=== PATIENT | female | born 1990 | race Caucasian/White ===

== ENCOUNTER 2025-01-05 10:24 | Emergency (ER) | payer SELFPAY ==
[2025-01-05 10:37] VITALS: BP 122/72; PULSE 66; TEMP 36.9; O2SAT 99; BMI 39.5
[2025-01-05] MEDS: ONDANSETRON PF 4 MG/2 ML VIAL IV (10:56)
[2025-01-05] MEDS: 0.9 % SODIUM CHLORIDE 1,000 ML 1000 ML IV (10:56)
[2025-01-05] MEDS: KETOROLAC TROMETHAMINE 30 MG/ML VIAL IVP (10:56)
[2025-01-05 11:01] LABS: Basophils Absolute Auto 0.1 10^3/uL (0.0-0.1); Basophils Percent Auto 0.3 % (0.2-2.0); Eosinophils Absolute Auto 0.2 10^3/uL (0.0-0.7); Eosinophils Percent Auto 1.1 % (0.9-7.0); Hematocrit 42.1 % (36.0-48.0); Hemoglobin 14.3 g/dL (12.0-16.0); Immature Granulocytes Abs Auto 0.08 10^3/uL (0.00-0.03); Immature Granulocytes Pct Auto 0.5 % (0.0-0.5); Lymphocytes Absolute Auto 2.6 10^3/uL (1.2-3.8); Lymphocytes Percent Auto 16.5 % (20.5-60.0); Mean Corpuscular Hemoglobin 29.4 pg (26.7-34.0); Mean Corpuscular Volume 86.4 fL (81.0-99.0); Mean Platelet Volume 10.5 fL (9.5-13.5); Monocytes Absolute Auto 0.9 10^3/uL (0.3-0.8); Monocytes Percent Auto 5.8 % (1.7-12.0); Neutrophils Percent Auto 75.8 % (43.0-75.0); Platelet Count 347 10^3/uL (150-450); Red Blood Count 4.87 10^6/uL (4.20-5.40); Red Cell Distribution Width 13.5 % (11.0-15.0); White Blood Count 15.9 10^3/uL (4.0-11.0)
--- NOTE | 2025-01-05 11:12 | ED.GENADUL1 ---
HPI HPI - General Adult General Chief complaint: Back Pain/Injury Stated complaint: FLANK PAIN Time Seen by Provider: 01/05/25 10:33 Source: patient Mode of arrival: Wheelchair History of Present Illness HPI narrative: Patient presents to ED complaining of right flank pain. She said it started dull this morning and then suddenly got a lot worse. She said the pain is in the flank but radiates around the front. It has been causing nausea vomiting. She said her mom has a history of kidney stones and this feels like possibly what this is. She does have a history of ideation she does still have her appendix and gallbladder. She has not been spiking fevers. She said she does not really drink a lot of water and she knows she does not really take care of herself that well. She said she tried to start drinking water and cranberry juice but the pain nausea and vomiting were too much so she came in for further value patient. IV was started and Toradol and Zofran were ordered. Related Data Previous Rx's ?Medication ?Instructions ?Recorded ciprofloxacin HCl 500 mg tablet 500 mg PO BID 7 days #14 tabs 01/05/25 (Cipro) ondansetron 4 mg disintegrating 4 mg PO DAILY PRN nausea and 01/05/25 tablet vomiting #15 tabs oxycodone-acetaminophen 5 mg-325 1 tab PO Q6H PRN pain #14 tabs 01/05/25 mg tablet (Percocet) tamsulosin 0.4 mg capsule (Flomax) 0.4 mg PO DAILY #14 caps 01/05/25 Allergies Allergy/AdvReac Type Severity Reaction Status Date / Time morphine AdvReac Rash Verified 01/05/25 10:37 Opioid HPI Opioid Management Most Recent Opioid Data: No Data to Display Review of Systems ROS Status of ROS 10 or more systems reviewed and unremarkable except as noted in history and below PFSH PFSH Social History Little interest or pleasure in doing things: not at all Feeling down, depressed, or hopeless: not at all Exam Narrative Exam Narrative: Time Seen: [] Vital Signs: [Per nurse's notes.] General: [Alert] Skin: [Warm, dry, no rash.] Head: [Normocephalic, atraumatic.] Neck: [Supple, trachea midline.] Eye: [Pupils are equal, round and reactive to light, extraocular movements are intact, normal conjunctiva.] Ears, nose, mouth and throat: oral mucosa moist. Cardiovascular: [Regular rate and rhythm, no murmur.] Respiratory: [Lungs are clear to auscultation, respirations are non-labored, breath sounds are equal.] Chest wall: [No tenderness, no deformity.] Gastrointestinal: [Soft, nontender, non distended, normal bowel sounds.] Right flank pain radiating to the abdomen not reproducible on exam patient states it is more inside pain but it does not hurt to push on it. MSK: 5 out of 5 muscle strength x 4 extremities no calf pain or edema Lymphatics: [No lymphadenopathy.] Psychiatric: [Cooperative, appropriate mood & affect.] Neurological: [Alert and oriented to person, place, time, and situation, no focal neurological deficit observed.] Constitutional Vital Signs, click to edit/add: Last Vital Signs Temp 98.4 F 01/05/25 10:37 Pulse 66 01/05/25 10:37 Resp 18 01/05/25 10:37 BP 122/72 01/05/25 10:37 Pulse Ox 99 01/05/25 10:37 O2 Del Method Room Air 01/05/25 10:37 Course Vital Signs Vital signs: Vital Signs Temperature 98.4 F 01/05/25 10:37 Pulse Rate 66 01/05/25 10:37 Respiratory Rate 18 01/05/25 10:37 Blood Pressure 122/72 01/05/25 10:37 Pulse Oximetry 99 01/05/25 10:37 Oxygen Delivery Method Room Air 01/05/25 10:37 Temperature 98.4 F 01/05/25 10:37 Pulse Rate 66 01/05/25 10:37 Respiratory Rate 18 01/05/25 10:37 Blood Pressure 122/72 01/05/25 10:37 Pulse Oximetry 99 01/05/25 10:37 Oxygen Delivery Method Room Air 01/05/25 10:37 Medical Decision Making MDM Narrative Medical decision making narrative: Patient CT scan shows an obstructing stone in the right UPJ. Stone is 3 mm in size. Patient's pain and nausea are controlled after IV medications. Patient would prefer to go home and try to pass the kidney stone at home. Instructed to hydrate. Call Urology: Office today to schedule follow-up appointment Patient was given Cipro, Flomax, Percocet and Zofran for pain and nausea control as well as Treatment: For possible infection Patient is to return to ED if worsening symptoms, fever chills vomiting or worsening pain. Otherwise follow-up with urology outpatient. Patient comfortable with care plan for home Differential Diagnosis Differential Diagnosis: The stone acute appendicitis back strain Lab Data Lab results reviewed: Yes I reviewed the patient's lab results Labs: Lab Results 01/05/25 01/05/25 Range/Units 10:40 10:45 WBC 15.9 H (4.0-11.0) 10^3/uL RBC 4.87 (4.20-5.40) 10^6/uL Hgb 14.3 (12.0-16.0) g/dL Hct 42.1 (36.0-48.0) % MCV 86.4 (81.0-99.0) fL MCH 29.4 (26.7-34.0) pg MCHC 34.0 (29.9-35.2) g/dL RDW 13.5 (11.0-15.0) % Plt Count 347 (150-450) 10^3/uL MPV 10.5 (9.5-13.5) fL Neut % (Auto) 75.8 H (43.0-75.0) % Lymph % (Auto) 16.5 L (20.5-60.0) % [place] % (Auto) 5.8 (1.7-12.0) % Eos % (Auto) 1.1 (0.9-7.0) % Baso % (Auto) 0.3 (0.2-2.0) % Neut # (Auto) 12.0 H (1.4-6.5) 10^3/uL Lymph # (Auto) 2.6 (1.2-3.8) 10^3/uL [place] # (Auto) 0.9 H (0.3-0.8) 10^3/uL Eos # (Auto) 0.2 (0.0-0.7) 10^3/uL Baso # (Auto) 0.1 (0.0-0.1) 10^3/uL Abs Immat Gran (auto) 0.08 H (0.00-0.03) 10^3/uL Imm/Tot Granulo (auto) 0.5 (0.0-0.5) % Sodium 138 (136-145) mmol/L Potassium 3.5 (3.5-5.1) mmol/L Chloride 105 (98-107) mmol/L Carbon Dioxide 21.5 (21.0-32.0) mmol/L Anion Gap 15.0 BUN 11.0 (7.0-18.0) mg/dL Creatinine 0.80 (0.55-1.02) mg/dL Est GFR ( Amer) >60 (>=60 mL/min/1.73m^2) Est GFR (Non-Af Amer) >60 (>=60 mL/min/1.73m^2) BUN/Creatinine Ratio 13.8 Glucose 105 (74-106) mg/dL Calcium 9.5 (8.5-10.1) mg/dL Total Bilirubin 0.3 (0.2-1.0) mg/dL AST 11 L (15-37) U/L ALT 12 L (14-59) U/L Alkaline Phosphatase 76 (46-116) U/L Total Protein 7.3 (6.4-8.2) g/dL Albumin 3.5 (3.4-5.0) g/dL Globulin 3.8 g/dL Albumin/Globulin Ratio 0.9 Urine Color Yellow (YELLOW) Urine Clarity Clear (CLEAR) Urine pH 8.0 (5.0-9.0) Ur Specific [place] 1.020 (1.005-1.025) Urine Protein 100 A (NEG/TRACE) mg/dL Urine Glucose (UA) Negative (NEGATIVE) mg/dL Urine Ketones Negative (NEGATIVE) mg/dL Urine Occult Blood Large A (NEGATIVE) Urine Nitrite Negative (NEGATIVE) Urine Bilirubin Negative (NEGATIVE) Urine Urobilinogen 1.0 (0.2-1.0) EU/dL Ur Leukocyte Esterase Small A (NEGATIVE) Urine RBC 10-20 A (0-2) #/HPF Urine WBC 10-20 A (NONE SEEN) #/HPF Ur Squamous Epith Cells Few A (NONE/RARE) #/LPF Ur Transition Epith Cell Rare A (NONE SEEN) #/LPF Urine Crystals None seen (None Seen) #/HPF Amorphous Sediment Rare Urine Bacteria Moderate A (NONE SEEN) #/HPF Urine Casts None seen (NONE SEEN) #/LPF Urine Mucus Trace A (NONE SEEN) Ur Culture Indicated? Yes-[facility] – [place], [place] Imaging Data CT scan - abdomen: Attestation: I have reviewed the pertinent imaging results. Discharge Plan Discharge Chief Complaint: Back Pain/Injury Clinical Impression: Kidney stone on right side Patient Disposition: Home, Self-Care Time of Disposition Decision: 12:41 Condition: Good Mode of Transportation: Private Vehicle Prescriptions / Home Meds: New ciprofloxacin HCl [Cipro] 500 mg tablet 500 mg PO BID 7 Days Qty: 14 0RF oxycodone-acetaminophen [Percocet] 5-325 mg tablet 1 tab PO Q6H PRN (Reason: pain) Qty: 14 0RF tamsulosin [Flomax] 0.4 mg capsule 0.4 mg PO DAILY Qty: 14 0RF ondansetron 4 mg tablet,disintegrating 4 mg PO DAILY PRN (Reason: nausea and vomiting) Qty: 15 0RF Print Language: Chinese Instructions: Kidney Stones (ED) Referrals: Physician,Non-Staff, [Primary Care Provider] - 1 week Scar Son MD [Physician] - 1 week Discharge Date/Time: 01/05/25 12:57
[2025-01-05 11:16] LABS: Alanine Aminotransferase 12 U/L (14-59); Albumin Globulin Ratio 0.9; Albumin Level 3.5 g/dL (3.4-5.0); Alkaline Phosphatase 76 U/L (46-116); Aspartate Amino Transferase 11 U/L (15-37); BUN Creatinine Ratio 13.8; Bilirubin Total 0.3 mg/dL (0.2-1.0); Calcium 9.5 mg/dL (8.5-10.1); Carbon Dioxide 21.5 mmol/L (21.0-32.0); Chloride 105 mmol/L (98-107); Estimated GFR (African America >60 (>=60 mL/min/1.73m^2); Estimated GFR (Non-African Ame >60 (>=60 mL/min/1.73m^2); Globulin 3.8 g/dL; Glucose 105 mg/dL (74-106); Potassium 3.5 mmol/L (3.5-5.1); Sodium 138 mmol/L (136-145); Total Protein 7.3 g/dL (6.4-8.2)
[2025-01-05 12:20] LABS: Bilirubin Urine NEGATIVE (NEGATIVE); Blood Urine LARGE (NEGATIVE); Clarity Urine CLEAR (CLEAR); Color Urine YELLOW (YELLOW); Glucose Urine UA NEGATIVE (NEGATIVE); Ketones Urine NEGATIVE (NEGATIVE); Leukocyte Esterase Urine SMALL (NEGATIVE); Nitrite Urine NEGATIVE (NEGATIVE); Protein Urine 100 mg/dL (NEG/TRACE)
[2025-01-05 12:31] LABS: Bacteria Urine MODERATE #/HPF (NONE SEEN); Cast Seen? NONE SEEN #/LPF (NONE SEEN); Crystals Seen? None Seen #/HPF (None Seen); Mucus Urine TRACE (NONE SEEN); Squamous Epithelial Cell Urine FEW #/LPF (NONE/RARE); Transitional Epi Cells Urine RARE #/LPF (NONE SEEN); Urine Culture Indicated YES-FRMC
[2025-01-05 12:41] LABS: Amorphous Sediment Urine RARE
== END 2025-01-05 12:57 | disposition home or self-care (01) ==
PROVIDERS: Emergency Provider Emergency Medicine
DX: N13.2 Hydronephrosis with renal and ureteral calculous obstruction (principal)
CPT/HCPCS: 36415; 74176; 80053; 81001; 85025; 87086; 87150; 87186; 96361; 96374; 96375; 99284; J1885; J2405

== ENCOUNTER 2025-03-08 13:30 | Emergency (ER) | payer SELFPAY ==
[2025-03-08 13:35] VITALS: BP 129/89; PULSE 78; TEMP 37.1; O2SAT 98; BMI 38.6
[2025-03-08 13:54] LABS: Basophils Absolute Auto 0.1 10^3/uL (0.0-0.1); Basophils Percent Auto 0.4 % (0.2-2.0); Eosinophils Absolute Auto 0.2 10^3/uL (0.0-0.7); Eosinophils Percent Auto 1.7 % (0.9-7.0); Hematocrit 47.2 % (36.0-48.0); Hemoglobin 15.5 g/dL (12.0-16.0); Immature Granulocytes Pct Auto 0.7 % (0.0-0.5); Lymphocytes Absolute Auto 2.7 10^3/uL (1.2-3.8); Lymphocytes Percent Auto 20.2 % (20.5-60.0); Mean Corpuscular HGB Conc 32.8 g/dL (29.9-35.2); Mean Corpuscular Hemoglobin 29.2 pg (26.7-34.0); Mean Corpuscular Volume 88.9 fL (81.0-99.0); Mean Platelet Volume 10.1 fL (9.5-13.5); Monocytes Absolute Auto 1.1 10^3/uL (0.3-0.8); Monocytes Percent Auto 7.9 % (1.7-12.0); Neutrophils Absolute Auto 9.2 10^3/uL (1.4-6.5); Neutrophils Percent Auto 69.1 % (43.0-75.0); Platelet Count 339 10^3/uL (150-450); Red Blood Count 5.31 10^6/uL (4.20-5.40); White Blood Count 13.4 10^3/uL (4.0-11.0)
[2025-03-08 13:55] LABS: Bilirubin Urine NEGATIVE (NEGATIVE); Blood Urine NEGATIVE (NEGATIVE); Clarity Urine CLEAR (CLEAR); Color Urine LT. YELLOW (YELLOW); Glucose Urine UA NEGATIVE (NEGATIVE); Ketones Urine NEGATIVE (NEGATIVE); Protein Urine NEGATIVE (NEG/TRACE); Specific Gravity Urine 1.015 (1.005-1.025); pH Urine 7.5 (5.0-9.0)
[2025-03-08 13:56] LABS: Leukocyte Esterase Urine NEGATIVE (NEGATIVE); Nitrite Urine NEGATIVE (NEGATIVE); Urine Microscopic Indicated NO; Urobilinogen Urine 0.2 EU/dL (0.2-1.0)
[2025-03-08] MEDS: KETOROLAC TROMETHAMINE 30 MG/ML VIAL 15 MG IVP (13:56)
[2025-03-08 14:05] VITALS: O2SAT 100
[2025-03-08 14:10] LABS: HCG Qualitative NEGATIVE (NEGATIVE); Internal Control Within Normal Limits
[2025-03-08 14:12] LABS: Alanine Aminotransferase 31 U/L (14-59); Albumin Globulin Ratio 0.9; Albumin Level 3.4 g/dL (3.4-5.0); Alkaline Phosphatase 80 U/L (46-116); Anion Gap 12.4; Aspartate Amino Transferase 22 U/L (15-37); BUN Creatinine Ratio 9.4; Bilirubin Total 0.4 mg/dL (0.2-1.0); Calcium 9.2 mg/dL (8.5-10.1); Carbon Dioxide 27.8 mmol/L (21.0-32.0); Chloride 103 mmol/L (98-107); Estimated GFR (African America >60 (>=60 mL/min/1.73m^2); Estimated GFR (Non-African Ame >60 (>=60 mL/min/1.73m^2); Globulin 3.9 g/dL; Glucose 79 mg/dL (74-106); Potassium 4.2 mmol/L (3.5-5.1); Sodium 139 mmol/L (136-145); Total Protein 7.3 g/dL (6.4-8.2)
--- NOTE | 2025-03-08 15:18 | ED_ITS ---
HPI - Female Genitourinary General Chief complaint: Urogenital-Female Stated complaint: FLANK PAIN, UTI SYMPTOMS Time Seen by Provider: 03/08/25 13:43 Source: patient Mode of arrival: walk-in Limitations: no limitations History of Present Illness HPI Narrative: The patient is coming to the ER with 5 days history of lower back pain, she has have a history of kidney stone from December of this year and although she did feel better and this pain started only 5 days ago she is worried that this could be another kidney stone episode, the patient had her menstruation almost 6 weeks ago, she denies any nausea or vomiting and the pain is consistent for the last 5 days and in both sides of the lower back Related Data Previous Rx's ?Medication ?Instructions ?Recorded diclofenac sodium 75 mg 75 mg PO Q12H PRN pain #20 t abs 03/08/25 tablet,delayed release Allergies Allergy/AdvReac Type Severity Reaction Status Date / Time morphine AdvReac Rash Verified 01/05/25 10:37 Review of Systems ROS Status of ROS 10 or more systems reviewed and unremark able except as noted in history and below PFSH PFSH Social History Little interest or pleasure in doing things: not at all Feeling down, depressed, or hopeless: not at all Exam Narrative Exam Narrative: Nurses notes and vital signs reviewed and patient is not hypoxic. General: Well-appearing and in no apparent distress. Skin: Warm, dry, no pallor noted. No rash. Head: Normocephalic, atraumatic. Neck: Supple, non-tender. Eye: Pupils are equal, round and EOMI. No scleral icterus. Ears, Nose, Mouth, and Throat: TM are clear, no nasal mucosal hypertrophy. Oral mucosa is moist, no posterior oropharynx erythema, uvula is mid-line Cardiovascular: Regular Rate and Rhythm without murmur, gallop or rub. Respiratory: No accessory muscle use or respiratory distress. Lungs are clear to auscultation, no wheezing, rales or rhonchi Chest Wall: no tenderness Back: The patient have paraspinal muscle tenderness at the upper lumbar level, no CVA tenderness Musculoskeletal: normal ROM, no calf or popliteal tenderness, no lower extremity edema/swelling GI: Abdomen is soft, non-distended. Normal bowel sounds. No masses appreciated. No tenderness to palpation. No rebound, guarding, or rigidity noted. Neurological: A&O x4. No cranial nerve dysfunction observed. No truncal ataxia. Moves all extremities. Sensation intact. Psychiatric: Cooperative and interactive. Normal mood and affect. Constitutional Vital Signs, click to edit/add: Last Vital Signs Temp 98.8 F 03/08/25 13:35 Pulse 78 03/08/25 13:35 Resp 18 03/08/25 13:35 BP 129/89 03/08/25 13:35 Pulse Ox 100 03/08/25 14:05 O2 Del Method Room Air 03/08/25 14:05 Course Vital Signs Vital signs: Vital Signs Temperature 98.8 F 03/08/25 13:35 Pulse Rate 78 03/08/25 13:35 Respiratory Rate 18 03/08/25 13:35 Blood Pressure 129/89 03/08/25 13:35 Pulse Oximetry 98 03/08/25 13:35 Oxygen Delivery Method Room Air 03/08/25 13:35 Temperature 98.8 F 03/08/25 13:35 Pulse Rate 78 03/08/25 13:35 Respiratory Rate 18 03/08/25 13:35 Blood Pressure 129/89 03/08/25 13:35 Pulse Oximetry 100 03/08/25 14:05 Oxygen Delivery Method Room Air 03/08/25 14:05 MDM - Female Genitourinary MDM Narrative Medical decision making narrative: The patient presentation with a history of kidney stone with hydro likely to be a stone but she does have pain both sides of the back Although she endorsed frequency the urinalysis showed no UTI CBC and chemistry showed no acute pathology except for mild elevation of the white blood cells The patient urine will be sent for culture but her presentation right now it could be secondary to lower back pain, mostly muscular in origin Patient feeling better after she was treated with Toradol discharged home after her CAT scan showed no acute pathology The patient instructed about monitoring her symptoms The patient is to follow up with primary care physician in next 2-3 days or to return to the emergency department should any of the signs or symptoms worsen or new symptoms develop. The patient agrees with the following Diagnosis and Treatment plan and the patient will be discharged home. Lab Data Labs: Lab Results 03/08/25 03/08/25 Range/Units 13:42 13:45 WBC 13.4 H (4.0-11.0) 10^3/uL RBC 5.31 (4.20-5.40) 10^6/uL Hgb 15.5 (12.0-16.0) g/dL Hct 47.2 (36.0-48.0) % MCV 88.9 (81.0-99.0) fL MCH 29.2 (26.7-34.0) pg MCHC 32.8 (29.9-35.2) g/dL RDW 14.0 (11.0-15.0) % Plt Count 339 (150-450) 10^3/uL MPV 10.1 (9.5-13.5) fL Neut % (Auto) 69.1 (43.0-75.0) % Lymph % (Auto) 20.2 L (20.5-60.0) % [place] % (Auto) 7.9 (1.7-12.0) % Eos % (Auto) 1.7 (0.9-7.0) % Baso % (Auto) 0.4 (0.2-2.0) % Neut # (Auto) 9.2 H (1.4-6.5) 10^3/uL Lymph # (Auto) 2.7 (1.2-3.8) 10^3/uL [place] # (Auto) 1.1 H (0.3-0.8) 10^3/uL Eos # (Auto) 0.2 (0.0-0.7) 10^3/uL Baso # (Auto) 0.1 (0.0-0.1) 10^3/uL Abs Immat Gran (auto) 0.10 H (0.00-0.03) 10^3/uL Imm/Tot Granulo (auto) 0.7 H (0.0-0.5) % Sodium 139 (136-145) mmol/L Potassium 4.2 (3.5-5.1) mmol/L Chloride 103 (98-107) mmol/L Carbon Dioxide 27.8 (21.0-32.0) mmol/L Anion Gap 12.4 BUN 8.0 (7.0-18.0) mg/dL Creatinine 0.85 (0.55-1.02) mg/dL Est GFR ( Amer) >60 (>=60 mL/min/1.73m^2) Est GFR (Non-Af Amer) >60 (>=60 mL/min/1.73m^2) BUN/Creatinine Ratio 9.4 Glucose 79 (74-106) mg/dL Calcium 9.2 (8.5-10.1) mg/dL Total Bilirubin 0.4 (0.2-1.0) mg/dL AST 22 (15-37) U/L ALT 31 (14-59) U/L Alkaline Phosphatase 80 (46-116) U/L Total Protein 7.3 (6.4-8.2) g/dL Albumin 3.4 (3.4-5.0) g/dL Globulin 3.9 g/dL Albumin/Globulin Ratio 0.9 Serum HCG, Qual Negative (NEGATIVE) Urine Color Lt. yellow (YELLOW) Urine Clarity Clear (CLEAR) Urine pH 7.5 (5.0-9.0) Ur Specific [place] 1.015 (1.005-1.025) Urine Protein Negative (NEG/TRACE) mg/dL Urine Glucose (UA) Negative (NEGATIVE) mg/dL Urine Ketones Negative (NEGATIVE) mg/dL Urine Occult Blood Negative (NEGATIVE) Urine Nitrite Negative (NEGATIVE) Urine Bilirubin Negative (NEGATIVE) Urine Urobilinogen 0.2 (0.2-1.0) EU/dL Ur Leukocyte Esterase Negative (NEGATIVE) Discharge Plan Discharge Chief Complaint: Urogenital-Female Clinical Impression: Back pain Patient Disposition: Home, Self-Care Time of Disposition Decision: 15:21 Condition: Good Prescriptions / Home Meds: New diclofenac sodium 75 mg tablet,delayed release (DR/EC) 75 mg PO Q12H PRN (Reason: pain) Qty: 20 0RF Print Language: Upper Sorbian Instructions: Back Pain (ED) Referrals: Physician,Non-Staff, MD [Primary Care Provider] - 1 week
[2025-03-08 15:40] VITALS: BP 132/78; PULSE 75; O2SAT 100
== END 2025-03-08 15:41 | disposition home or self-care (01) ==
PROVIDERS: Emergency Provider Emergency Medicine
DX: M54.50 Low back pain, unspecified (principal); Z87.442 Personal history of urinary calculi
CPT/HCPCS: 36415; 74176; 80053; 81003; 84703; 85025; 96374; 99285; J1885

== ENCOUNTER 2025-07-17 15:18 | Emergency (ER) | payer MEDICAID, SELFPAY ==
[2025-07-17 15:28] VITALS: BP 126/94; PULSE 70; TEMP 37.1; O2SAT 97; BMI 38.6
--- OUTSIDE RECORDS SUMMARY | 2025-07-17 15:30 | XMS_ITS | CCD ---
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 By: Rodolfo Patel on 07-15-2022 Epithelial cells.squamous LM Ql (Urine sed) Innumerable [HPF] 0-2 [facility] Troponin I.cardiac [Mass/vol ume] in Serum or Plasma by High sensitivity methodOrdered By: Rodolfo Patel on 07-15-2022 Troponin I.cardiac High sensitivity method [Mass/Vol] 3 pg/mL 0-15 [facility] Urine bacteria detection by automated methodOrdered By: Rodolfo Patel on 07-15-2022 Bacteria Auto Ql (U) 4+ None Seen [facility] Urine clarity by refractomet ry automatedOrdered By: Rodolfo Patel on 07-15-2022 Clarity Refractometry automated (U) Turbid Clear [facility] Urine glucose measurement by automated test strip (mass/volume)Ordered By: Rodolfo Patel on 07-15-2022 Glucose Auto test strip (U) [Mass/Vol] Normal mg/dL Normal [facility] Urine hemoglobin detection b y automated test stripOrdered By: Rodolfo Patel on 07-15-2022 Hemoglobin Auto test strip Ql (U) Negative Negative [facility] Urine leukocyte esterase det ection by automated test stripOrdered By: Rodolfo Patel on 07-15-2022 Leukocyte esterase Auto test strip Ql (U) 2+ Negative [facility] Urobilinogen Auto test strip (U) [Mass/Vol]Ordered By: Rodolfo Patel on 07-15-2022 Urobilinogen (U) [Mass/Vol] Normal mg/dL Normal [facility] pH Auto test strip (U)Ordere d By: Rodolfo Patel on 07-15-2022 pH (U) 6.5 [pH] 5.0-9.0 [facility] CBC AUTO DIFFon 10-29-2021 BASO # 0.1 103/ul Normal 0.0-0.1 [facility] Comment on above: Performed By: #### C BC #### [facility] [address] [address] [address] Ori Ellis Basophils/100 WBC (Bld) 0.7 % Normal 0.2-2.0 [facility] Comment on above: Performed By: #### C BC #### [facility] [address] [address] [address] Ori Ellis EO # 0.6 103/ul Normal 0.0-0.7 [facility] Comment on above: Performed By: #### C BC #### [facility] [address] [address] [address] Ori Ellis Eosinophils/100 WBC (Bld) 4.4 % Normal 0.9-7.0 [facility] Comment on above: Performed By: #### C BC #### [facility] [address] [place] [address] Dr. Ori Ellis Erythrocyte distribution width (RBC) [Ratio] 13.8 % Normal 11.0-15.0 [facility] Comment on above: Performed By: #### C BC #### [facility] [address] [place] [address] Dr. Ori Ellis Hematocrit (Bld) [Volume fraction] 43.0 % Normal 36.0-48.0 [facility] Comment on above: Performed By: #### C BC #### [facility] [address] [place] [address] Dr. Ori Ellis Hemoglobin (Bld) [Mass/Vol] 13.7 g/dL Normal 12.0-16.0 [facility] Comment on above: Performed By: #### C BC #### [facility] [address] [place] [address] Dr. Ori Ellis IG # 0.08 10e3/ul Critically high 0.00-0.03 [facility] Comment on above: Performed By: #### C BC #### [facility] [address] [place] [address] Dr. Ori Ellis IG % 0.6 % Critically high 0.0-0.5 [facility] Comment on above: Performed By: #### C BC #### [facility] [address] [place] [address] Dr. Ori Ellis LYMPH # 2.5 103/ul Normal 1.2-3.8 [facility] Comment on above: Performed By: #### C BC #### [facility] [address] [place] [address] Dr. Ori Ellis Lymphocytes/100 WBC (Bld) 18.3 % Critically low 20.5-60.0 [facility] Comment on above: Performed By: #### C BC #### [facility] [address] [place] [address] Dr. Ori Ellis MANUAL DIFF REQ NO Normal [facility] Comment on above: Performed By: #### C BC #### [facility] [address] [place] [address] Dr. Ori Ellis MCH (RBC) [Entitic mass] 28.5 pg Normal 26.7-34.0 [facility] Comment on above: Performed By: #### C BC #### [facility] [address] [place] [address] Dr. Ori Ellis MCHC (RBC) [Mass/Vol] 31.9 g/dL Normal 29.9-35.2 [facility] Comment on above: Performed By: #### C BC #### [facility] [address] [place] [address] Dr. Ori Ellis MCV (RBC) [Entitic vol] 89.4 fL Normal 81.0-99.0 [facility] Comment on above: Performed By: #### C BC #### [facility] [address] [place] [address] Dr. Ori Ellis MONO # 0.9 103/ul Critically high 0.3-0.8 [facility] Comment on above: Performed By: #### C BC #### [facility] [address] [place] [address] Dr. Ori Ellis Monocytes/100 WBC (Bld) 6.9 % Normal 1.7-12.0 [facility] Comment on above: Performed By: #### C BC #### [facility] [address] [place] [address] Dr. Ori Ellis NEUT # 9.4 103/ul Critically high 1.4-6.5 [facility] Comment on above: Performed By: #### C BC #### [facility] [address] [place] [address] Dr. Ori Ellis Neutrophils/100 WBC (Bld) 69.1 % Normal 43.0-75.0 [facility] Comment on above: Performed By: #### C BC #### [facility] [address] [place] [address] Dr. Ori Ellis Platelet mean volume (Bld) [Entitic vol] 10.0 fL Normal 9.5-13.5 [facility] Comment on above: Performed By: #### C BC #### [facility] [address] [place] [address] Dr. Ori Ellis PLT 321 103/ul Normal 150-450 [facility] Comment on above: Performed By: #### C BC #### [facility] [address] [place] [address] Dr. Ori Ellis RBC 4.81 106/ul Normal 4.20-5.40 [facility] Comment on above: Performed By: #### C BC #### [facility] [address] [place] [address] Dr. Ori Ellis WBC 13.5 103/ul Critically high 4.0-11.0 [facility] Comment on above: Performed By: #### C BC #### [facility] [address] [place] [address] Dr. Ori Ellis PREG QUANT HCGon 10-29-2021 HCG QUANT 1 mIU/mL Normal [facility] Comment on above: Performed By: #### P REGQNT #### [facility] [address] [place] [address] Dr. Ori Ellis HCG RANGE SEE BELOW Normal [facility] Comment on above: Result Comment: 5-50 0-1 WEEK 40-300 1-2 WEEKS 100-1,000 2-3 WEEKS 500-6,000 3-4 WEEKS 5,000-200,000 1-2 MONTHS 10,000-100,000 2-3 MONTHS 3,000-50,000 2ND TRIMESTER 1,000-50,000 3RD TRIMESTER Performed By: #### P REGQNT #### [facility] [address] [place] [address] [id number] [address] Ori Ellis Covid-19 PCR ([facility])on 10-10 SARS-CoV-2 (COVID-19) RNA NADINE+probe Ql (Unsp spec) Not detected Normal NOT DETECTED [facility] Comment on above: Result Comment: This test is not yet approved or cleared by the [place] FDA. When there are no FDA-approved or cleared tests available, and other criteria are met, FDA can make tests available under an emergency access mechanism called an Emergency Use Authorization (EUA). The EUA for this test is supported by the Junior Brand Manager of Health and Human Service's (HHS's) declaration that circumstances exist to justify the emergency use of in vitro diagnostics for the detection and/or diagnosis of the virus that causes COVID-19. This EUA will remain in effect (meaning this test can be used) for the duration of the COVID-19 declaration justifying emergency of IVDs, unless it is terminated or revoked by FDA (after which the test may no longer be used). When diagnostic testing is negative, the possibility of a false negative should be considered in the context of a patient's recent exposures and the presence of clinical signs and symptoms consistent with SARS-CoV-2. Performed By: #### C [facility] #### [facility] [address] [place], [place] [id number] Dr. Ori Ellis US PELVIS AND TRANSVAGon US PELVIS AND TRANSVAG EXAMINATION: US PELVIS AND TRANSVAG HISTORY: Pelvic and perineal pain COMPARISON: No relevant comparison available. FINDINGS: Transabdominal and transvaginal images The uterus is normal in size, contour and myometrial echotexture measuring 8.6 x 6.6 x 5.0 cm. No focal myometrial mass. Anteverted. The endometrium measures 11.8 mm. The right ovary is normal in size measuring 3.5 x 2.1 x 2.4 cm. Normal resistive index of 0.6. Area of anechoic echogenicity measuring 1.6 x 1.5 x 1.0 cm, simple cyst The left ovary measures 1.9 x 1.6 x 1.7 cm. Normal resistive index of 0.6. No free fluid IMPRESSION: Endometrium measures 11.8 mm. Normal for the late proliferative or secretory phase of ovulation. Clinically correlate Electronically authenticated by: NICOLE SOFIA Date: 2021-10-17 12:19 Normal [facility] PAP ACOG PANEL 2: 30 to 65on 10-09-2021 . . Normal [facility] Comment on above: Result Comment: Perf ormed at: WB Performed By: #### [id number] #### [facility] [address] [place] [address] Dr. Ori Ellis Age Gdln ACOG Testing 30-65 Normal [facility] Comment on above: Performed By: #### [id number] #### [facility] [address] [place] [address] Dr. Ori Ellis DIAGNOSIS: Comment Normal [facility] Comment on above: Result Comment: NEGA TIVE FOR INTRAEPITHELIAL LESION OR MALIGNANCY. PREDOMINANCE OF COCCOBACILLI CONSISTENT WITH SHIFT IN VAGINAL DONNELL IS PRESENT. Performed at: WB Performed By: #### [id number] #### [facility] [address] [place] [address] Dr. Ori Ellis HPV Aptima Negative Normal Negative [facility] Comment on above: Result Comment: This nucleic acid amplification test detects fourteen high-risk HPV types (16,18,31,33,35,39,45,51,52,56,58,59,66,68) without differentiation. Performed at: =G Performed By: #### [id number] #### [facility] [address] [place] [address] Dr. Ori Ellis Methodology: Comment Normal [facility] Comment on above: Result Comment: This liquid based ThinPrep(R) pap test was screened with the use of an image guided system. Performed at: WB Performed By: #### [id number] #### [facility] [address] [place] [address] Dr. Ori Ellis Note: Comment Normal [facility] Comment on above: Result Comment: The Pap smear is a screening test designed to aid in the detection of premalignant and malignant conditions of the uterine cervix. It is not a diagnostic procedure and should not be used as the sole means of detecting cervical cancer. Both false-positive and false-negative reports do occur. . Performed at: WB Performed By: #### [id number] #### [facility] [address] [address] [address] Ori Ellis Performed by: Comment Normal [facility] Comment on above: Result Comment: Kaci Nath, [employer] ([employer]) Performed at: WB Performed By: #### [id number] #### [facility] [address] [address] [address] Ori Ellis Specimen adequacy: Comment Normal [facility] Comment on above: Result Comment: Sati sfactory for evaluation. Endocervical and/or squamous metaplastic cells (endocervical component) are present. Performed at: WB Performed By: #### [id number] #### [facility] [address] [address] [address] Ori Ellis Vital Signs Date Time Vital Sign Value Performing Clinician Faci lit 08-23-2024 11:44-0400 Diastolic blood pressure 79 mm[Hg] BORIS BUSTER [facility] 08-23-2024 11:44-0400 Mean blood pressure 92 mm[Hg] BORIS BUSTER [facility] 08-23-2024 11:44-0400 Systolic blood pressure 119 mm[Hg] BORIS BUSTER [facility] 08-23-2024 11:40-0400 Blood Pressure Location BORIS BUSTER [facility] 08-23-2024 11:40-0400 Diastolic blood pressure 102 mm[Hg] BORIS BUSTER [facility] 08-23-2024 11:40-0400 Heart rate 64 /min BORIS BUSTER [facility] 08-23-2024 11:40-0400 Systolic blood pressure 133 mm[Hg] BORIS GOINS [facility] 11-29-2023 22:52-0500 Body height 162.56 cm [facility] Work Phone: [facility] 11-29-2023 22:52-0500 Body temperature 97.9 [degF] [facility] Work Phone: [facility] 11-29-2023 22:52-0500 Body weight 105 kg [facility] Work Phone: [facility] 11-29-2023 22:52-0500 Diastolic blood pressure 79 mm[Hg] [facility] Work Phone: [facility] 11-29-2023 22:52-0500 Heart rate 75 /min [facility] Work Phone: [facility] 11-29-2023 22:52-0500 Respiratory rate 18 /min [facility] Work Phone: [facility] 11-29-2023 22:52-0500 SaO2% (BldA) [Mass fraction] 98 % [facility] Work Phone: [facility] 11-29-2023 22:52-0500 Systolic blood pressure 126 mm[Hg] [facility] Work Phone: [facility] 02-07-2023 19:25-0400 Body height 163.83 cm [facility] Work Phone: [facility] 02-07-2023 19:25-0400 Body temperature 98 [degF] [facility] Work Phone: [facility] 02-07-2023 19:25-0400 Body weight 96.9 kg [facility] Work Phone: [facility] 02-07-2023 19:25-0400 Diastolic blood pressure 72 mm[Hg] [facility] Work Phone: [facility] 02-07-2023 19:25-0400 Heart rate 67 /min [facility] Work Phone: [facility] 02-07-2023 19:25-0400 Respiratory rate 16 /min [facility] Work Phone: [facility] 02-07-2023 19:25-0400 SaO2% (BldA) [Mass fraction] 98 % [facility] Work Phone: [facility] 02-07-2023 19:25-0400 Systolic blood pressure 139 mm[Hg] [facility] Work Phone: [facility] 07-18-2022 12:56-0400 Body temperature 98.5 [degF] [facility] Work Phone: [facility] 07-18-2022 12:56-0400 Diastolic blood pressure 57 mm[Hg] [facility] Work Phone: [facility] 07-18-2022 12:56-0400 Heart rate 72 /min [facility] Work Phone: [facility] 07-18-2022 12:56-0400 Respiratory rate 16 /min [facility] Work Phone: [facility] 07-18-2022 12:56-0400 SaO2% (BldA) [Mass fraction] 98 % [facility] Work Phone: [facility] 07-18-2022 12:56-0400 Systolic blood pressure 111 mm[Hg] [facility] Work Phone: [facility] 07-18-2022 09:22-0400 Body height 162.56 cm [facility] Work Phone: [facility] 07-18-2022 09:22-0400 Body weight 90.71 kg [facility] Work Phone: [facility] 07-15-2022 09:17-0400 Diastolic blood pressure 68 mm[Hg] [facility] Work Phone: [facility] 07-15-2022 09:17-0400 Heart rate 57 /min [facility] Work Phone: [facility] 07-15-2022 09:17-0400 Respiratory rate 16 /min [facility] Work Phone: [facility] 07-15-2022 09:17-0400 SaO2% (BldA) [Mass fraction] 98 % [facility] Work Phone: [facility] 07-15-2022 09:17-0400 Systolic blood pressure 106 mm[Hg] [facility] Work Phone: [facility] 07-15-2022 07:45-0400 Body temperature 98.9 [degF] [facility] Work Phone: [facility] 07-15-2022 07:45-0400 Diastolic blood pressure 70 mm[Hg] [facility] Work Phone: [facility] 07-15-2022 07:45-0400 Heart rate 66 /min [facility] Work Phone: [facility] 07-15-2022 07:45-0400 Respiratory rate 18 /min [facility] Work Phone: [facility] 07-15-2022 07:45-0400 SaO2% (BldA) [Mass fraction] 99 % [facility] Work Phone: [facility] 07-15-2022 07:45-0400 Systolic blood pressure 126 mm[Hg] [facility] Work Phone: [facility] 07-15-2022 07:44-0400 Body height 162.56 cm [facility] Work Phone: [facility] 07-15-2022 07:44-0400 Body weight 95 kg [facility] Work Phone: [facility] Encounters Encounter Date Encounter Type Care Provider Facility Start: 01-05-2025 End: 01-05-[address] [facility] Work Phone: Start: 01-05-2025 End: 01-05-2025 Departed Referred Sherley Rice DO Work Phone: [facility] Start: 08-23-2024 End: 08-23-2024 ambulatory PA-C BORIS GOINS Facility:[facility] Start: 08-23-2024 End: 08-23-2024 Patient encounter procedure BORIS GOINS [facility] Start: 03-29-2024 ambulatory PA-C BORIS GOINS Fac ility:[facility] Start: 03-16-2024 End: 03-16-2024 ambulatory AXEL NIRAJ Not Available Start: 12-26-2023 End: 12-26-2023 ambulatory EDMUND Shonda PRICE Not Available Start: 12-01-2023 End: 12-01-2023 [facility]ulatory [facility] Work Phone: [facility] Work Phone: Start: 12-01-2023 End: 12-01-2023 Patient encounter procedure [facility] Work Phone: [facility] [place] Work Phone: Start: 11-29-2023 End: 11-30-2023 Emergency department patient visit [facility] Work Phone: [facility] Work Phone: Start: 02-07-2023 End: 02-07-2023 Emergency department patient visit [facility] Work Phone: [facility] Work Phone: Start: 07-18-2022 End: 07-18-2022 Emergency department patient visit [facility] Work Phone: [facility] Start: 07-15-2022 End: 07-15-2022 Emergency department patient visit [facility] Work Phone: [facility] Start: 10-30-2021 Encounter for preprocedural laboratory examination DR AXEL HEALY [facility] Start: 10-29-2021 End: 10-29-2021 ambulatory NONE LISTED REQUEST Facility:[facility] Start: 10-25-2021 End: 10-26-[address] NONE LISTED REQUEST Facility:[facility] Start: 10-25-2021 End: 10-26-2021 Encounter for preprocedural laboratory examination NONE LISTED REQUEST Facility:[facility] Start: 10-17-2021 End: 10-18-[address] NICOLE SOFIA Facility:[facility] Start: 10-17-2021 End: 10-18-2021 ambulatory NONE LISTED REQUEST Facility:[facility] Start: 10-03-2021 End: 10-03-[address] AXEL HEALY Facility: Procedures Date Procedure Procedure Detail Performing Clinician Start: 11-30-2023 Plain chest X-ray [facility] Work Phone: Start: 07-15-2022 Plain chest X-ray [facility] Work Phone: Destructive procedure JENNIF ER BUSTER Comment on above: endometrial abalatio n Ligation of fallopian tube J ENNIFER BUSTER [facility] Work Phone: Plan of Treatment Date Care Activity Detail Author Start: 01-05-2025 Bacteria identified in Urine by Culture Urine Culture [facility] Start: 01-05-2025 Urine culture [facility] Start: 12-01-2023 [facility] Start: 11-30-2023 [facility] Start: 11-30-2023 Plain chest X-ray XR chest 2V* [facility] Start: 11-30-2023 XR Chest 2 Views [facility] Bacteria identified in Urine by Culture [facility] Interferon gamma assay [facility] Interferon gamma assay [facility] Mycobacterium tuberc ulosis stimulated gamma interferon [Interpretation] in Blood Qualitative [facility] Mycobacterium tuberc ulosis stimulated gamma interferon [Interpretation] in Blood Qualitative [facility] Mycobacterium tuberc ulosis stimulated gamma interferon release by CD4+ and CD8+ T-cells [Units/volume] corrected for background in Blood [facility] Mycobacterium tuberc ulosis stimulated gamma interferon release by CD4+ and CD8+ T-cells [Units/volume] corrected for background in Blood [facility] Mycobacterium tuberc ulosis tuberculin stimulated gamma interferon [Presence] in Blood [facility] Mycobacterium tuberc ulosis tuberculin stimulated gamma interferon [Presence] in Blood [facility] Patient Education [facility] [facility] Work Phone: Patient referral [facility] Work Phone: Immunizations Immunization Date Immunization Notes Care Provider Fa racielty NEGATED: Highlighted row has not occurred!01-26-2018 tetanus toxoid, reduced diphtheria toxoid, and acellular pertussis vaccine, adsorbed Services Family [facility] Work Phone: [facility] Payers Date Payer Category Payer Medicaid [id number] 2016 Self-pay [id number] 1990 Unknown [id number] 1988 Unknown [id number] 1988 Unknown [id number] 1988 Unknown [id number] 1988 Unknown [id number] 1988 Unknown [id number] 1988 Unknown [id number] [id number] 1988 Unknown [id number] [id number] 1988 Unknown [id number] [id number] 1959 Private Health Insurance [id number] Unknown [place] BC/BS [id number] Unknown [id number] Worker's Compensation [id number] Social History Date Type Detail Facility Tobacco smoking stat [facility] Unknown if ever smoked [facility] Start: 1990 Sex Assigned At Female [facility] Start: 07-15-2022 End: 11-30-2023 Tobacco smoking status NHIS Smoker (finding) [facility] Start: 08-23-2024 Tobacco smoking status Heavy t obacco smoker (finding) [facility] Tobacco smoking status Never [facility] Sex Assigned At Female [facility] Start: 01-06-2025 Sex Female (finding) [facility] Goals Date Patient Goal Desired Activity /State Functional Status Date Assessment Result Facility 08-23-2024 Functional Status N/A [facility] Clinical Notes 10-29-2021 to 08-23-2024 Note Date & Type Note Facility 08-23-2024 Hospital Discharg e instructions Patient Education 08/23/2024 12:38:11 Health Risks of Smoking Health Risks of Smoking Smoking tobacco is very bad for your health. Tobacco smoke contains many toxic chemicals that can damage every part of your body. Secondhand smoke can be harmful to those around you. Tobacco or nicotine use can cause many long-term (chronic) diseases. Smoking is difficult to quit because a chemical in tobacco, called nicotine, causes addiction or dependence. When you smoke and inhale, nicotine is absorbed quickly into your bloodstream through your lungs. Both inhaled and non-inhaled nicotine may be addictive. How can quitting affect me? There are health benefits of quitting smoking. Some benefits happen right away and others take time. Benefits may include: Blood flow, blood pressure, heart rate, and lung capacity may begin to improve. However, any lung damage that has already occurred cannot be repaired. Respiratory symptoms from smoking, such as nasal congestion and cough, may improve over time. Your risk of heart disease, stroke, and cancer is reduced. The overall quality of your health may improve. You may save money, as you will not spend money on tobacco products and may spend less money on smoking-related health issues. What can increase my risk? Smoking harms nearly every organ in the body. People who smoke tobacco have a shorter life expectancy and an increased risk of many serious medical problems. These include: More respiratory infections, such as colds and pneumonia. Cancer. Heart disease. Stroke. Chronic respiratory diseases. Delayed wound healing and increased risk of complications during surgery. Problems with reproduction, , and childbirth, such as infertility, early (premature) births, stillbirths, and defects. Secondhand smoke exposure to children increases the risk of: Sudden syndrome (SIDS). Infections in the nose, throat, or airways (respiratory infections). Chronic respiratory symptoms. What actions can I take to quit? Smoking is an addiction that affects both your body and your mind, and long-time habits can be hard to change. Your health care provider can recommend: Nicotine replacement products, such as patches, gum, and nasal sprays. Use these products only as directed. Do not replace cigarette smoking with electronic cigarettes, which are commonly called e-cigarettes. The safety of e-cigarettes is not known, and some may contain harmful chemicals. Programs and community resources, which may include group support, education, or talk therapy. Prescription medicines to help reduce cravings. A combination of two or more quit methods, which may increase the success of quitting. Where to find support Follow the recommendations from your health care provider about support groups and other assistance. You can also visit: U.S. Department of Health and Human Services: www.smokefree.gov [employer]: www.freedomfromsmoking.org [place] Heart Association: www.heart.org Where to find more information Centers for Disease Control and Prevention: www.cdc.gov World Health Organization: www.who.int Summary Smoking tobacco is very bad for your health. Tobacco smoke contains many toxic chemicals that can damage every part of the body. Smoking is difficult to quit because a chemical in tobacco, called nicotine, causes addiction or dependence. There are immediate and long-term health benefits of quitting smoking. A combination of two or more quit methods may increase the success of quitting. This information is not intended to replace advice given to you by your health care provider. Make sure you discuss any questions you have with your health care provider. Document Revised: 10/29/2022 Document Reviewed: 10/29/2022 [employer]™ Patient Education 2023 [employer]. Follow Up Care 04/26/2024 10:53:29 With:BUSTER MAYO, BORIS Cobb, URL Address: When:1 year [facility] 08-23-2024 Note Urology Office/Clini c Note Chief Complaint Referral/Frequency HPI Staff Isabella is a 33 yo female new pt referred by Dr. Axel Healy due to frequent UTIs. Last urine cx Clinisync is from 07/15/2022- e coli >100,000 03/16/24 - UTI sx per Niraj note. POCT UA +hgb +sm leuks no urine cx. GC/Chlam. Macrobid x 7d w 3 refills. Also given Doxy x7d + Azith then Moxifloxacin x 7d. Dysuria: Yes Incomplete bladder emptying: Yes Hematuria: No Frequency: Yes; maybe 45 minutes Urgency: Yes Nocturia: No Stream: Weak Wearing pads/ Depends: pad; occasionally uses 2 a day Urge incontinence: Yes Stress incontinence: Yes; more bothersome Incontinence without Sensory Awareness: Occasionally Abdominal pain: Yes, Pt has Endometriosis Flank pain: Yes; Pt has Endometriosis Sexual complaints: Yes; with intercourse and day following Review of Systems PHQ Score Initial Depression Screen Score: 0 SCORE no fever, chills, malaise, myalgia. no rash/lesions. no chest pain, palpitations, or SOB. no abdominal pain, nausea, vomiting. no unilateral calf swelling, redness, pain Physical Exam Vitals & Measurements HR: 64(Peripheral) BP: 119/79 HT: 64 in HT: 163 cm WT: 101.2 kg WT: 222.64 lb BMI: 38.09 General: nontoxic, NAD Mouth: moist mucosa Lungs: normal respiratory effort Cardio: regular rate, good distal perfusion Abdomen: nondistended, no suprapubic distention or tenderness, no CVA tenderness Neurologic: Grossly normal Skin: No rashes or suspicious lesions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
--- NOTE | 2025-07-17 15:52 | XR_ITS ---
[place] [id number] Patient Name: ISABELLA DODGE MRN: [id number] date: 1990 Sex: F Assigned Patient Location: ER Current Patient Location: ER Accession/Order Number: [id number] Exam Date: 07/17/2025 16:30 Report Date: 07/17/2025 16:41 At the request of: ANDERSON THOMPSON Procedure: XR cervical spine 2-3V CERVICAL SPINE 4 views: CLINICAL HISTORY: Cervical radiculopathy COMPARISON: None FINDINGS: No acute bony process. Vertebral body heights appear maintained. Mild spondylosis C6-7. No prevertebral soft tissue swelling. XR/XR cervical spine 2-3V IMPRESSION: MILD SPONDYLOSIS C6-7. NO ACUTE BONY PROCESS. Impression dictated by: Juan Manuel Mac Jr., D.O. 07/17/2025 4:41 PM Dictation Location: [place] [address] Electronically authenticated by: [id number] Y Date: 07/17/2025 16:41
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
--- NOTE | 2025-07-17 15:56 | XR_ITS ---
[address] [address] Patient Name: ISABELLA DODGE MRN: [id number] date: 1990 Sex: F Assigned Patient Location: ER Current Patient Location: ER Accession/Order Number: [id number] Exam Date: 07/17/2025 16:30 Report Date: 07/17/2025 16:40 At the request of: ANDERSON THOMPSON Procedure: XR humerus LT LEFT HUMERUS - 2 views CLINICAL HISTORY: Arm pain COMPARISON: None FINDINGS: No focal soft tissue abnormality or acute bony process. XR/XR humerus LT IMPRESSION: NO ACUTE BONY PROCESS. Impression dictated by: Juan Manuel Mac Jr., D.O. 07/17/2025 4:40 PM Dictation Location: [place] [address] Electronically authenticated by: [id number] Y Date: 07/17/2025 16:40
[2025-07-17] MEDS: ORPHENADRINE 60 MG/2 ML VIAL IV (16:08)
[2025-07-17] MEDS: KETOROLAC TROMETHAMINE 30 MG/ML VIAL IVP (16:08)
[2025-07-17] MEDS: HYDROMORPHONE HCL 0.5 MG/0.5 ML SYRINGE IV (16:08)
--- NOTE | 2025-07-17 16:19 | PC.NURSE ---
Addendum entered by Susan Allen 07/17/25 16:21: left shoulder, left arm and left hand, not right side as charted below Original Note: right shoulder pain that radiates wound to right hand and fingers, 5th, 4th, 3rd and 2nd digits are reported to be numb and tingling. strong radial pulse and pt able to move all fingers to right hand
[2025-07-17] MEDS: DEXAMETHASONE SOD PHOS 10 MG/ML VIAL IV (17:21)
== END 2025-07-17 17:30 | disposition home or self-care (01) ==
PROVIDERS: Emergency Provider Student in an Organized Health Care Education/Training Program
DX: M47.22 Other spondylosis with radiculopathy, cervical region (principal); M79.602 Pain in left arm
CPT/HCPCS: 72040; 73060; 96374; 96375; 99285; J1100; J1171; J1885; J2360; J2405

== ENCOUNTER 2025-10-22 01:05 | Emergency (ER) | payer MEDICAID, SELFPAY ==
[2025-10-22 01:14] VITALS: BP 112/40; PULSE 80; TEMP 37.1; O2SAT 98; BMI 36.0
--- NOTE | 2025-10-22 01:19 | XR_ITS ---
[place] [id number] Patient Name: ISABELLA DUDLEY MRN: [id number] date: 1990 Sex: F Assigned Patient Location: ED.MAIN Current Patient Location: Accession/Order Number: [id number] Exam Date: 10/22/2025 01:34 Report Date: 10/22/2025 08:17 At the request of: JEN HUNTLEY DO Procedure: XR chest 2V XR chest 2V 10/22/2025 1:37 AM SIGNS AND SYMPTOMS: ^cough PROTOCOL: Frontal and lateral radiographs of the chest COMPARISON: None FINDINGS: The trachea is midline. The heart and mediastinal structures are within normal limits. The lung parenchyma is clear. The bony thorax is intact. XR/XR chest 2V IMPRESSION: No acute cardiopulmonary pathology. Impression dictated by: Michele Walker M.D. 10/22/2025 8:17 AM Dictation Location: [place] [address] Electronically authenticated by: [id number] Y Date: 10/22/2025 08:17
[2025-10-22] MEDS: ONDANSETRON 4 MG RAPDIS TABLET SL (01:35)
[2025-10-22] MEDS: IBUPROFEN 600 MG TABLET PO (01:35)
--- NOTE | 2025-10-22 01:36 | ED.GENADUL1 ---
HPI HPI - General Adult General Chief complaint: Weakness Stated complaint: HEADACHE Time Seen by Provider: 10/22/25 01:06 Source: patient Mode of arrival: walk-in History of Present Illness HPI narrative: Patient is a 35-year-old female presenting to the emergency department for flulike symptoms beginning 12 hours ago while she was working. She states she feels generally fatigued, weak, full body muscle aches, sore throat, congestion, and headache. She denies any abdominal pain, nausea, or vomiting. No chest pain. She states she feels mildly short of breath. She is not on oral contraceptive pills. States she has a tubal ligation in the past. She is otherwise healthy with no chronic medical conditions. She takes no prescription medications. She smokes marijuana, but uses no other illicit drugs. Occasional alcohol use. Related Data Previous Rx's ?Medication ?Instructions ?Recorded diclofenac sodium 75 mg 75 mg PO Q12H PRN pain #20 tabs 03/08/25 tablet,delayed release cyclobenzaprine 10 mg tablet 10 mg PO TID PRN muscle spasm #15 07/17/25 tabs ibuprofen 600 mg tablet 600 mg PO Q6H PRN pain #30 tabs 07/17/25 ondansetron 4 mg disintegrating 4 mg PO Q6H PRN nausea and 07/17/25 tablet vomiting 5 days #15 tabs prednisone 50 mg tablet 50 mg PO DAILY 5 days #5 tabs 07/17/25 Allergies Allergy/AdvReac Type Severity Reaction Status Date / Time morphine AdvReac Rash Verified 10/22/25 01:29 Opioid HPI Opioid Management Most Recent Opioid Data: Last Pain Scale 3 07/17/25, 17:28 Review of Systems ROS Status of ROS 10 or more systems reviewed and unremarkable except as noted in history and below PFSH PFS Social History Little interest or pleasure in doing things: not at all Feeling down, depressed, or hopeless: not at all Exam Narrative Exam Narrative: CONSTITUTIONAL: Patient appears fatigued and ill, nontoxic, answering questions and follow commands appropriate. SKIN: Was warm and dry. EYES: Sclerae white. EARS, NOSE, THROAT: Moist oral mucosa. No tonsil enlargement or exudates. Mild erythema in the posterior oropharynx. Uvula midline. No CARPENTER CRADLE AND DOLLY. RESPIRATORY: Lungs clear to auscultation bilaterally. Speaking in full sentences. No wheezing or rhonchi. No use of accessory muscles. CARDIOVASCULAR: Normal rate and regular rhythm. There is no S3, S4, murmur, rub. GASTROINTESTINAL: Abdomen is soft, nontender, nondistended. MUSCULOSKELETAL: No peripheral edema. Ambulates with a steady gait. NEUROLOGIC: Patient is awake and alert. Facies were symmetrical. Constitutional Vital Signs, click to edit/add: Last Vital Signs Temp 98.7 F 10/22/25 01:14 Pulse 80 10/22/25 01:14 Resp 20 10/22/25 01:14 BP 112/40 L 10/22/25 01:14 Pulse Ox 98 10/22/25 01:14 O2 Del Method Room Air 10/22/25 01:14 Course Vital Signs Vital signs: Vital Signs Temperature 98.7 F 10/22/25 01:14 Pulse Rate 80 10/22/25 01:14 Respiratory Rate 20 10/22/25 01:14 Blood Pressure 112/40 L 10/22/25 01:14 Pulse Oximetry 98 10/22/25 01:14 Oxygen Delivery Method Room Air 10/22/25 01:14 Temperature 98.7 F 10/22/25 01:14 Pulse Rate 80 10/22/25 01:14 Respiratory Rate 20 10/22/25 01:14 Blood Pressure 112/40 L 10/22/25 01:14 Pulse Oximetry 98 10/22/25 01:14 Oxygen Delivery Method Room Air 10/22/25 01:14 Medical Decision Making MDM Narrative Medical decision making narrative: Patient is a 35-year-old female presenting to the emergency department with flulike symptoms x 12 hours. Her vital signs on arrival are within normal limits. She is afebrile and hemodynamically stable. She is saturating 98% on room air in no respiratory distress with clear breath sounds bilaterally. Differential diagnosis includes viral URI, viral syndrome, and less likely developing pneumonia. Chest x-ray and viral swabs were obtained. She was given Motrin and Zofran for symptomatic treatment. Chest x-ray independently reviewed/interpreted by myself demonstrated no acute cardiopulmonary process. COVID/flu swabs negative I do believe the patient is stable for discharge. Patient's presentation is most likely consistent with viral URI. They were instructed to follow up with her PCP as needed. Return precautions were given including any new or worsening symptoms. Patient understands and agrees to the plan. FINAL IMPRESSION: #Acute viral upper respiratory infection DISPOSITION: Discharged home CONDITION: Good Lab Data Lab results reviewed: Yes I reviewed the patient's lab results Labs: Lab Results 10/22/25 Range/Units 01:20 Influenza Type A Ag Negative Influenza Type B Ag Negative SARS-CoV-2 Ag (CV2AG) Negative (NEGATIVE) Imaging Data Chest x-ray: Attestation: I personally reviewed and interpreted this imaging study as follows: Discharge Plan Discharge Chief Complaint: Weakness Clinical Impression: Upper respiratory infection, viral Patient Disposition: Home, Self-Care Time of Disposition Decision: 01:46 Condition: Good Mode of Transportation: Private Vehicle Prescriptions / Home Meds: No Action diclofenac sodium 75 mg tablet,delayed release (DR/EC) 75 mg PO Q12H PRN (Reason: pain) Qty: 20 0RF ondansetron 4 mg tablet,disintegrating 4 mg PO Q6H PRN (Reason: nausea and vomiting) 5 Days Qty: 15 0RF prednisone 50 mg tablet 50 mg PO DAILY 5 Days Qty: 5 0RF cyclobenzaprine 10 mg tablet 10 mg PO TID PRN (Reason: muscle spasm) Qty: 15 0RF ibuprofen 600 mg tablet 600 mg PO Q6H PRN (Reason: pain) Qty: 30 0RF Print Language: Sinhala Instructions: Viral Syndrome (ED) Referrals: [facility] [Primary Care Provider] - 1 week
[2025-10-22 01:40] LABS: SARS-CoV-2 Ag NEGATIVE (NEGATIVE)
--- OUTSIDE RECORDS SUMMARY | 2025-10-22 02:02 | XMS_ITS | CCD ---
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 U/A75-50DuhhlqsrzTrumbull Memorial Hospitalerum or plasma calcium measurement (mass/volume)Ordered By: Rodolfo Patel on 42-59-2064Uctgoua [Mass/Vol]8.8 mg/dL8.2-10.2FMemorial Hospitalerum or plasma chloride measurement (moles/volume) Ordered By: Rodolfo Patel on 37-79-0832Jenkgksa [Moles/Vol]101 mmol/L95-114 [facility] Hospitalerum or plasma glucose measurement (mass/volume)Ordered By: Rodolfo Patel on 36-65-4510Lgtayvg [Mass/Vol]95 mg/dL 70-100[facility] - CincinnatiComment on above:ADA recommended reference range Random Glucose Reference Range is dependent on time and content of last meal. Glucose of more than 200 mg/dL in a nonstressed, ambulatory subject supports the diagnosis of Diabetes Mellitus.Serum or plasma potassium measurement (moles/volume)Ordered By: Rodolfo Patel on 19-49-0457Iicrrqglq [Moles/Vol]3.5 mmol/L3.5-5.1FMemorial Hospitalerum or plasma sodium measurement (moles/volume)Ordered By: Rodolfo Patel on 31-55-8936Mdwccr [Moles/Vol]135 mmol/L 136-146Tr[facility] Hospitalerum or plasma total bilirubin measurement (mass/volume)Ordered By: Rodolfo Patel on 06-51-1385Qpqthsyyk [Mass/Vol]0.4 mg/dL0.3-1.2FMemorial Hospitalerum or plasma total carbon dioxide measurement (moles/volume)Ordered By: Rodolfo Patel on 07-15-2022 CO2 [Moles/Vol]20.1 mmol/L22.0-30.0[facility] Hospitalerum or plasma urea nitrogen measurement (mass/volume)Ordered By: Rodolfo Patel on 68-56-4817Ndsn nitrogen [Mass/Vol]11 mg/dL9-23[facility] Specific gravity Auto test strip (U) [Rel density]Ordered By: Rodolfo Patel on 86-10-8321Qzzylklq gravity (U) [Rel density]1.0271.001-1.030[facility] Memorial Hospitalquamous epithelial cells detection in urine sediment by light microscopyOrdered By: Rodolfo Patel on 33-50-0802Fuzfzworpd cells.squamous LM Ql (Urine sed)Innumerable [HPF]0-2FPremier Health Miami Valley Hospital SouthTroponin I.cardiac [Mass/volume] in Serum or Plasma by High sensitivity methodOrdered By: Rodolfo Patel on 15-69-5861Pnqvrakp I.cardiac High sensitivity method [Mass/Vol]3 pg/mL0-15[facility] - CincinnatiUrine bacteria detection by automated methodOrdered By: Rodolfo Patel on 91-02-3062Vlykkfya Auto Ql (U)4+None Seen [facility] - CincinnatiUrine clarity by refractometry automatedOrdered By: Rodolfo Patel on 63-37-3043Zvzcjof Refractometry automated (U)TurbidClear [facility] - CincinnatiUrine glucose measurement by automated test strip (mass/volume)Ordered By: Rodolfo Patel on 27-12-9203Qzfbwxt Auto test strip (U) [Mass/Vol]Normal mg/dLNoVeterans Health AdministrationUrine hemoglobin detection by automated test stripOrdered By: Rodolfo Patel on 93-96-6293Wdnnyhojzs Auto test strip Ql (U)NegativeNegativeSelect Medical Specialty Hospital - CincinnatiUrine leukocyte esterase detection by automated test stripOrdered By: Rodolfo Patel on 76-84-8136Dpmkiywbg esterase Auto test strip Ql (U)2+Negative [facility] - CincinnatiUrobilinogen Auto test strip (U) [Mass/Vol] Ordered By: Rodolfo Patel on 31-25-1136Hlvymurwtdax (U) [Mass/Vol]Normal mg/dL NormalSelect Medical Specialty Hospital - CincinnatipH Auto test strip (U)Ordered By: Rodolfo Patel on 16-01-2206cJ (U)6.5 [pH]5.0-9.0[facility] - CincinnatiCBC AUTO DIFFon 85-26-7384AHIY #0.1 103/ulNormal0.0-0.1The [facility] HospitalComment on above:Performed By: #### CBC #### [facility] [address] [address] [address] Ori Christianphils/100 WBC (Bld)0.7 %Normal0.2-2.0[facility] Comment on above:Performed By: #### CBC #### [facility] [address] [address] [address] Ori Hitchcock #0.6 103/ulNormal0.0-0.7The [facility] HospitalComment on above: Performed By: #### CBC #### [facility] [address] [address] [address] Ori Zelayaosinophils/100 WBC (Bld)4.4 %Normal0.9-7.0[facility] Comment on above:Performed By: #### CBC #### [facility] [address] [address] [address] Ori Zelayarythrocyte distribution width (RBC) [Ratio]13.8 %Tfebmz72.0-15.0 [facility] HospitalComment on above:Performed By: #### CBC #### [facility] [address] [place] [address] Dr. Ori EllisHematocrit (Bld) [Volume fraction]43.0 %Vbxptg92.0-48.0The [facility] HospitalComment on above:Performed By: #### CBC #### [facility] [address] [place] [address] Dr. Ori EllisHemoglobin (Bld) [Mass/Vol]13.7 g/xESwtbfc47.0-16.0[facility] HospitalComment on above:Performed By: #### CBC #### [facility] [address] [place] [address] Dr. Ori Lynch #0.08 10e3/ulCritically high0.00-0.03[facility] Comment on above:Performed By: #### CBC #### [facility] [address] [place] [address] Dr. Ori Lynch %0.6 %Critically high0.0-0.5The [facility] HospitalComment on above:Performed By: #### CBC #### [facility] [address] [place] [address] Dr. Ori Matta #2.5 103/ulNormal1.2-3.8[facility] HospitalComment on above:Performed By: #### CBC #### [facility] [address] [place] [address] Dr. Ori Houstonmphocytes/100 WBC (Bld)18.3 %Critically low20.5-60.0[facility] on above:Performed By: #### CBC #### [facility] [address] [address] [address] Ori Meadows DIFF REQNONormalThe [facility] HospitalComment on above: Performed By: #### CBC #### [facility] [address] [address] [address] Ori Kelsey (RBC) [Entitic mass]28.5 cjSxjzhc35.7-34.0[facility] HospitalComment on above:Performed By: #### CBC #### [facility] [address] [place] [address] Dr. Ori Kelsey (RBC) [Mass/Vol]31.9 g/pTJpkvtq88.9-35.2[facility] HospitalComment on above:Performed By: #### CBC #### [facility] [address] [place] [address] Dr. Ori Kelsey (RBC) [Entitic vol]89.4 oDUjcjnm47.0-99.0[facility]tering [facility] Hospitalment on above:Performed By: #### CBC #### [facility] [address] [place] [address] Dr. Ori Ruth #0.9 103/ulCritically high0.3-0.8ThZanesville City Hospital Comment on above:Performed By: #### CBC #### [facility] [address] [place] [address] Dr. Ori Poolocytes/100 WBC (Bld)6.9 %Normal1.7-12.0[facility] Comment on above:Performed By: #### CBC #### [facility] [address] [place] [address] Dr. Ori Wilson #9.4 103/ulCritically high1.4-6.5ThZanesville City Hospital Comment on above:Performed By: #### CBC #### [facility] [address] [place] [address] Dr. Ori Lojautrophils/100 WBC (Bld)69.1 %Fgpvrb41.0-75.0[facility] Hospitalment on above:Performed By: #### CBC #### [facility] [address] [address] [address] Ori Hall mean volume (Bld) [Entitic vol]10.0 fLNormal9.5-13.5The [facility] HospitalComment on above:Performed By: #### CBC #### [facility] [address] [address] [address] Ori AlvarezT321 103/qiJtabkg370-795VbbOur Lady Of Mercy Hospital - AndersonCombeaumont hospital on above: Performed By: #### CBC #### [facility] [address] [place] [address] Dr. Ori EllisRBC4.81 106/ulNormal4.20-5.40[facility] on above:Performed By: #### CBC #### [facility] [address] [place] [address] Dr. Ori EllisWBC13.5 103/ulCritically high4.0-11.0[facility] - AndersonComment on above:Performed By: #### CBC #### [facility] [address] [place] [address] Dr. Ori Leos QUANT HCGon 85-75-2588CAR QUANT1 mIU/mLNormalVan Wert County Hospital on above:Performed By: #### PREGQNT #### [facility] [address] [place] [address] Dr. rOi Lizarraga RANGESEE BELOWNoUC Medical CenterComment on above: Result Comment: 5-50 0-1 WEEK 40-300 1-2 WEEKS 100-1,000 2-3 WEEKS 500-6,000 3-4 WEEKS 5,000-200,000 1-2 MONTHS 10,000-100,000 2-3 MONTHS 3,000-50,000 2ND TRIMESTER 1,000-50,000 3RD TRIMESTERPerformed By: #### PREGQNT #### [facility] [address] [place] [address] Dr. Ori Wynnd-19 PCR (CVDTB)on 47-17-9291TJGV-CoV-2 (COVID-19) RNA NADINE+probe Ql (Unsp spec)Not detectedNormalNOT DETECTEDThe [facility] Comment on above:Result Comment: This test is not yet approved or cleared by the [place] FDA. When there are no FDA-approved or cleared tests available, and other criteria are met, FDA can make tests available under an emergency access mechanism called an Emergency Use Authorization (EUA). The EUA for this test is supported by the [place] of Health and Human Service's (HHS's) declaration that circumstances exist to justify the emergency use of in vitro diagnostics for the detection and/or diagnosis of the virus that causes COVID- 19. This EUA will remain in effect (meaning [...] of clinical signs and symptoms consistent with SARS-CoV-2.Performed By: #### CVDTBH #### [facility] [address] [place] [address] Dr. Ori EllisUS PELVIS AND TRANSVAGon 43-06-9865PX PELVIS AND TRANSVAG EXAMINATION: US PELVIS AND [...] Electronically authenticated by: NICOLE SOFIA Date: 2021-10-17 12:19[facility]bleOG PANEL 2: 30 to 65on 10-09-2021..NormalThe [facility] on above:Result Comment: Performed at: WBPerformed By: #### [id number] #### [facility] [address] [place] [address] Dr. Ori EllisAge Gdln ACOG Jnnjnnh27-13BnsypnOggUC Medical CenterComment on above:Performed By: #### [id number] #### [facility] [address] [place] [address] Dr. Ori EllisDIAGNOSIS:CommentSheltering Arms Hospital on above: Result Comment: NEGATIVE FOR INTRAEPITHELIAL LESION OR MALIGNANCY. PREDOMINANCE OF COCCOBACILLI CONSISTENT WITH SHIFT IN VAGINAL DONNELL IS PRESENT. Performed at: WBPerformed By: #### [id number] #### [facility] [address] [place] [address] Dr. Ori EllisHPV AptimaNegativeNormalNegativeOur Lady Of Mer[facility] Hospital - AndersonCombeaumont hospital on above:Result Comment: This nucleic acid amplification test detects fourteen high-risk HPV types (16,18,31,33,35,39,45,51,52,56,58,59,66,68) without differentiation. Performed at: =GPerformed By: #### [id number] #### [facility] [address] [place] [address] Dr. Ori EllisMethodology:CommentSheltering Arms Hospital on above: Result Comment: This liquid based ThinPrep(R) pap test was screened with the use of an image guided system. Performed at: WBPerformed By: #### [id number] #### [facility] [address] [place] [address] Dr. Ori EllisNote:CommentSheltering Arms Hospital on above:Result Comment: The Pap smear is a screening test designed to aid in the detection of premalignant and malignant conditions of the uterine cervix. It is not a diagnostic procedure and should not be used as the sole means of detecting cervical cancer. Both false-positive and false-negative reports do occur. . Performed at: WBPerformed By: #### [id number] #### [facility] [address] [address] [address] Ori EllisPerformed by:CommentMercy Health Perrysburg HospitalCombeaumont hospital on above: Result Comment: Danette Nath, Batch Freezer (ASCP) Performed at: WBPerformed By: #### [id number] #### [facility] [address] [address] [address] Ori EllisSpecimen adequacy:CommentMercy Health Perrysburg HospitalCombeaumont hospital on above:Result Comment: Satisfactory for evaluation. Endocervical and/or squamous metaplastic cells (endocervical component) are present. Performed at: WBPerformed By: #### [id number] #### [facility] [address] [address] [address] Ori Ellis Vital Signs Date TimeVital SignValuePerforming EinadpnlmSioodkjq59-63-3564 03:00-0400 Diastolic blood iwkonose80 mm[Hg]Zac Fontanez MD Work Phone: 1(590)989-[address] [place], [place] 3460810-16-2025 03:00-0400 Heart rate56 /minZac Fontanez MD Work Phone: [phone])316-[address] [place], [place] 3460810-16-2025 03:00-0400 Inhaled oxygen concentration2 %Zac Fontanez MD Work Phone: 1(616)240-[address] [place], [place] 3460810-16-2025 03:00-0400 Respiratory rate20 /minZac Fontanez MD Work Phone: 1([phone])303-[address] [place], [place] 3460810-16-2025 03:00-0400 SaO2% (BldA) [Mass fraction]100 %Zac Fontanez MD Work Phone: 0(511)121-[address] [place], [place] 3460810-16-2025 03:00-0400 Systolic blood dshgoikj514 mm[Hg]Zac Fontanez MD Work Phone: 1(763)177-[address] [place], [place] 3460810-16-2025 01:02-0400 Inhaled oxygen flow rate2 L/minZac Fontanez MD Work Phone: [phone])226-[address] [place], [place] 3460810-15-2025 23:33-0400 Body dzwxhztduwl50.9 [degF]Zac Fontanez MD Work Phone: [facility]10-15-2025 23:32-0400 Body emxxge231.02 cmTetelvina Fontanez MD Work Phone: [facility]10-15-2025 23:32-0400 Body .52 kgZac Fontanez MD Work Phone: [facility]10-14-2024 11:44-0400 Diastolic blood phklniys01 mm[Hg]BORIS BUSTER [facility] [place] 829760-14-2024 11:44-0400Mean blood xumoszpq12 mm[Hg]BORIS BUSTER [facility] [place] 829760-14-2024 11:44-0400Systolic blood eremdmao550 mm[Hg]BORIS BUSTER [facility] [place] 829760-14-2024 11:40-0400Blood Pressure LocationJENNIFER BUSTER [facility] [place] 829760-14-2024 11:40-0400Diastolic blood mm[Hg]BORIS BUSTER [facility] [place] 829760-14-2024 11:40-0400Heart rate64 /minJENNIFER BUSTER [facility] [place] 829760-14-2024 11:40-0400Systolic blood admzfvge621 mm[Hg]BORIS BUSTER [facility]01-20-2024 22:52-0500Body vnivgp954.56 [facility] Work Phone: [phone])[address]01-20-2024 22:52-0500 Body flbjokyojas30.9 [degF][facility] Work Phone: [phone] [place], [place] 0804801-20-2024 22:52-0500 Body kjalji262 kgSerindiana regional medical center [employer] Work Phone: [phone])[address] [place], [place] 0804801-20-2024 22:52-0500 Diastolic blood mm[Hg][facility] Work Phone: [phone])[address] [place], [place] 0804801-20-2024 22:52-0500 Heart rate75 /[employer] Work Phone: [phone])[address] [place], [place] 0804801-20-2024 22:52-0500 Respiratory rate18 /[employer] Work Phone: [phone])[address] [place], [place] 0804801-20-2024 22:52-0500 SaO2% (BldA) [Mass fraction]98 %[facility] Work Phone: [phone])[address] [place], [place] 0804801-20-2024 22:52-0500 Systolic blood nwulpjnw239 mm[Hg]Services [employer] [facility] Work Phone: [phone] [place], [place] 0804803-31-2023 19:25-0400 Body rdfvaz026.83 cmServInnovatient Solutions Work Phone: [phone])[address] [place], [place] 0804803-31-2023 19:25-0400 Body hqbjamvkrhz86 [degF][facility] Work Phone: [phone])[address] [place], [place] 0804803-31-2023 19:25-0400 Body qcmtig75.9 kgSermenlo park surgical hospitalCoversant, Inc. Work Phone: [phone])[address] [place], [place] 0804803-31-2023 19:25-0400 Diastolic blood zottoegh45 mm[Hg]Services [employer] Work Phone: 1(113)[address] [place], [place] 0804803-31-2023 19:25-0400 Heart rate67 /minSZenedy Work Phone: 1(459)[address] [place], [place] 0804803-31-2023 19:25-0400 Respiratory rate16 /minSZenedy Work Phone: [phone])593-[facility]03-31-2023 19:25-0400 SaO2% (BldA) [Mass fraction]98 %[facility] [employer] Work Phone: 1(373)583-[address] [place], [place] 0448703-31-2023 19:25-0400 Systolic blood rrtutgxj342 mm[Hg][facility] [employer] Work Phone: [phone]09-08-2022 12:56-0400 Body fcteqqdetuu46.5 [degF][facility] [employer] Work Phone: [phone])[address]558 [address]09-08-2022 12:56-0400 Diastolic blood pokfkqfy73 mm[Hg]Services [employer] Work Phone: [phone])[address]09-08-2022 12:56-0400 Heart rate72 /[employer] Work Phone: 1(072)69058 [address]09-08-2022 12:56-0400 Respiratory rate16 /[employer] Work Phone: 1(680)06[address]09-08-2022 12:56-0400 SaO2% (BldA) [Mass fraction]98 %[facility] [employer] Work Phone: [phone])27758 [address]09-08-2022 12:56-0400 Systolic blood nvqwrvpa544 mm[Hg][facility] [employer] Work Phone: 1([phone])[address]09-08-2022 09:22-0400 Body .56 cmSZenedy Work Phone: [phone])[address]09-08-2022 09:22-0400 Body bvgeso05.71 kgServicCoversant, Inc. Work Phone: [phone])[address]58 [address]09-05-2022 09:17-0400 Diastolic blood wovapsqj83 mm[Hg][facility] [employer] Work Phone: [phone])[address]09-05-2022 09:17-0400 Heart rate57 /[employer] Work Phone: [phone])24958 [address]09-05-2022 09:17-0400 Respiratory rate16 /minServInnovatient Solutions Work Phone: [phone])27558 [address]09-05-2022 09:17-0400 SaO2% (BldA) [Mass fraction]98 %[facility] [employer] Work Phone: [phone])[address]09-05-2022 09:17-0400 Systolic blood mm[Hg][facility] [employer] Work Phone: [phone])50658 [address]09-05-2022 07:45-0400 Body qcgkfhuwafn61.9 [degF][facility] [employer] Work Phone: [phone])18458 [address]09-05-2022 07:45-0400 Diastolic blood xanlloxd74 mm[Hg][facility] [employer] Work Phone: 1(383)[address]09-05-2022 07:45-0400 Heart rate66 /minSZenedy Work Phone: 1(923)10558 [address]09-05-2022 07:45-0400 Respiratory rate18 /[employer] Work Phone: 1(219)57[address]09-05-2022 07:45-0400 SaO2% (BldA) [Mass fraction]99 %[facility] [employer] Work Phone: 1(030)84358 [address]09-05-2022 07:45-0400 Systolic blood aoepghkx681 mm[Hg][facility] [employer] Work Phone: [phone])6[address]58 [address]09-05-2022 07:44-0400 Body .56 cmServInnovatient Solutions Work Phone: [phone])[address]09-05-2022 07:44-0400 Body xezptk93 kgServices [employer] Work Phone: [phone] [place] [address] Encounters Encounter DateEncounter TypeCare ProviderFacilityStart: 08-24-2025 End: 05-30-8986Wouxakipt department patient visitZac Fontanez MD Work Phone: [phone]-Qhxmbooze Room Work Phone: Start: 01-05-2025 End: 87-60-8689wumrtdqvusDzmykd L MedardoMccull[facility] Work Phone: Start: 01-05-2025 End: 62-57-4625Xfujngdz ReferredJanice Rice DO Work Phone: [facility]-LAB Path Spec Langtry HospStart: 08-23-2024 End: 93-07-4396xalsfnzcuoOD-Stephanie GOINSFacility: [place]kyStart: 08-23-2024 End: 52-19-3489Rnvvayg encounter procedureJENNJESSICA GOINS [facility] Start: 12-85-3595boamqvxupbOC-Stephanie GOINS Facility:[facility] HospitaluskyStart: 03-16-2024 End: 54-42-2236ngrmujyzteHILKW FAZIONot AvailableStart: 12-26-2023 End: 45-42-7929rwpyzpjemqNLDEXNA N AUSTINNot AvailableStart: 12-01-2023 End: 55-05-6654jgqqoagjmwOweefopi Family Health Work Phone: [facility] Work Phone: Start: 12-01-2023 End: 13-26-7857Taptrwt encounter procedureServices [facility] Work Phone: [facility]-Lab Main [place] Work Phone: Start: 11-29-2023 End: 74-86-0278Aweatoero department patient visitServices Family Health Work Phone: [facility]-Emergency Room Work Phone: Start: 02-07-2023 End: 79-02-3887Iwhnespkh department patient visitServices Family [facility] Work Phone: [facility]-Emergency Room Work Phone: Start: 07-18-2022 End: 44-99-8051Pnregesnh department patient visitServices [employer] Work Phone: [facility]-Emergency RoomStart: 07-15-2022 End: 47-25-5279Tftqzmnkk department patient visitServices [facility] Work Phone: [facility]-Emergency RoomStart: 57-17-0893Ttxczcvvj for preprocedural laboratory examinationDR AXELOhio Valley Surgical Hospitaltart: 10-29-2021 End: 31-72-3250tsxmvokjwuQZ NONE LISTED REQUESTFacility:F2Fchoz: 10-25-2021 End: 35-33-4819rqxmbfienaTL NONE LISTED REQUESTFacility:E7Chqqi: 10-25-2021 End: 39-85-0046Mvulyuplr for preprocedural laboratory examinationDR NONE LISTED REQUESTFacility:T4Dwxju: 10-17-2021 End: 21-55-4696wrtayrnzxqKO NICOLE Krause WESTFacility:Z4Rxmbc: 10-17-2021 End: 71-22-5083jwloabzavpVO NONE LISTED REQUESTFacility:H8Lyaeu: 10-03-2021 End: 94-56-0637hagrbymtreLA AXEL FAOFacility:H1 Procedures DateProcedureProcedure DetailPerforming ClinicianStart: 10-34-8262Elwwy chest X-rayServices [employer] Work Phone: Start: 57-92-4551Lghev chest X-rayServices [employer] Work Phone: Destructive procedureJENNIFER BUSTER Comment on above:endometrial abalationLigation of fallopian tubeJENNIFER BUSTER Respiratory Panel (PCR)[facility] Work Phone: Urine cultureServices [employer] Work Phone: Plan of Treatment DateCare ActivityDetailAuthorStart: 89-79-7132DB cervical spine without contrast CT [facility] 96-30-3847ST Cervical spine WO contrastTrumbull Memorial Hospitaltart: 48-04-0836YD of head without contrastCT head/brain wo [facility] Start: 47-88-9638UG Unspecified body region WO contrastTrumbull Memorial Hospitaltart: 30-51-4537Uduls chest X-rayXR chest 1V portableTrumbull Memorial Hospitaltart: 72-26-6207VC Chest Single viewTrumbull Memorial Hospitaltart: 97-29-3791C-ray of right ankleXR ankle RT min 3V*[facility]: 98-96-4317EP Ankle - right GE 3 ViewsTrumbull Memorial Hospitaltart: 91-02-1570Cyvwqwwj identified in Urine by Culture Urine CultureTrumbull Memorial Hospitaltart: 65-02-2649Zofum culture [facility]: 07-16-1568ZvdmharldTrumbull Memorial Hospitaltart: 74-89-2763GzwzzouxwTrumbull Memorial Hospitaltart: 62-54-2037Sspuc chest X-rayXR chest 2V*[facility]tart: 18-57-1423NK Chest 2 ViewsSelect [facility]ty Hospital - CincinnatiBacteria identified in Urine by CultureSelect Medical Specialty Hospital - CincinnatiInterferon gamma assaySelect Medical Specialty Hospital - CincinnatiInterferon gamma assaySelect Medical Specialty [facility] - [place] Mycobacterium tuberculosis stimulated gamma interferon [Interpretation] in Blood [facility] stimulated gamma interferon [Interpretation] in Blood [facility] HospitalMycobacterium tuberculosis stimulated gamma interferon release by CD4+ and CD8+ T-cells [Units/volume] corrected for background in [facility]Myc[facility] tuberculosis stimulated gamma interferon release by CD4+ and CD8+ T-cells [Units/volume] corrected for background in [facility] HospitalMycobacterium tuberculosis tuberculin stimulated gamma interferon [Presence] in [facility] HospitalMycobacterium tuberculosis tuberculin stimulated gamma interferon [Presence] in [facility] HospitalPatient EducationCleveland Clinic [facility] Work Phone: Patient [facility] Work Phone: Immunizations Immunization DateImmunizationNotesCare ProviderFacilityNEGATED: Highlighted row has not occurred!41-84-4292tdloibw toxoid, reduced diphtheria toxoid, and acellular pertussis vaccine, adsorbedSermenlo park surgical hospitales [facility] Work Phone: [facility] Payers DatePayer CategoryPayerPolicy [id number] 2.16.840.1.076065.3.57[id number] 2.16.840.1.642722.3.57[id number] 2.16.840.1.099490.3.57[id number] 2.16.840.1.877682.3.57[id number] 2.16.840.1.804158.3.57[id number] 2.16.840.1.572161.3.57[id number] 2.16.840.1.031703.3.57[id number] 2.16.840.1.581818.3.57[id number] 2.16.840.1.195646.3.579.2.46166-94-0934Nlorzqn Health [id number] /[id number] 2.16.840.1.5[id number] 2.16.840.1.183047.3.579.2.531 Worker's [id number] Social History DateTypeDetailFacilityTobacco smoking status NHISUnknown if ever smokedCleveland Clinic [facility] CtrStart: 95-04-7666Wzw Assigned At [facility]tart: 07-15-2022 End: 41-57-2173Xzbaugv smoking status NHISSmoker (finding)[facility] Hospitaltart: 52-47-2853Zznwegf smoking statusHeavy tobacco smoker (finding)[facility] SanduskyTobacco smoking statusNeverExecutive [facility] SanduskySex Assigned At [facility]tart: 18-55-3699VkaCphmjq (finding)[facility] Hospitaltart: 89-59-5883Aeubnkk smoking status NHISSmokes tobacco daily (finding)[facility] NEGATED: Highlighted [facility] Goals DatePatient GoalDesired Activity/State Functional Status QctoDdibkkxkkoDgvhphLgbqleop70-56-0510Etgajhonlp StatusN/AExec[facility] [place] Clinical Notes 10-29-2021 to 08-23-2025 Note Date & IfsaUzdgFymekdou02-05-9924 Hospital Discharge instructions Additional Instructions I am going to prescribe medicine for pain. I will give you a boot and crutches. I will write you a note for work. Please follow-up with the orthopedics clinic. You may need more time off work because this seems to be a severe sprain. You may need to go to physical therapy. I will write the note through Friday so you can be seen Friday or Friday. Please call them this morning to make an appointment.[facility] Work Phone: [phone] 582-254810-14-2024 Hospital Discharge instructions Patient Education 08/23/2024 12:38:11 Health Risks [...] is absorbed quickly into your bloodstream through yourlungs. Both inhaled and non-inhaled nicotine may be [...] your mind, and long-time habits can be hardto change. Your health care provider can recommend: [...] Department of Health and Human Services: www.smokefree.gov [place] [employer]: www.freedomfromsmoking.org [place] [employer]: www.heart.org Where to find more [...] provider. Document Revised: 10/29/2022 Document Reviewed: 10/29/2022 [employer] Patient Education 2023 [employer]. Follow Up Care 04/26/2024 10:53:29 With:BORIS GOINS PA-C, URL Address: When:1 year [facility] 10-14-2024 NoteUrology Office/Clinic Note Chief Complaint Referral/Frequency HPI Staff Isabella [...] yes avoids baths/hot tubs yes avoids scented [employer] products yes urinates after sexual activity yes [...] 3x per day. Explained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
== END 2025-10-22 02:00 | disposition home or self-care (01) ==
LOC: ER 01:58
PROVIDERS: Emergency Provider Student in an Organized Health Care Education/Training Program
DX: J06.9 Acute upper respiratory infection, unspecified (principal); Z98.51 Tubal ligation status
CPT/HCPCS: 71046; 87804; 87811; 99283; 99284; Q0162